=== PATIENT | female | born 1995 | race American Indian/Alaskan Native ===

== ENCOUNTER 2017-06-18 08:00 | Outpatient (CLI) | payer OTHER | END 2017-06-18 09:40 | disposition home or self-care (01) | LOC: NST 08:00 | DX: Z34.83 Encounter for supervision of other normal pregnancy, third trimester (principal) ==

== ENCOUNTER 2017-06-27 05:35 | Inpatient (IN) | payer OTHER ==
[~2017-06-27] VITALS: Ht 162.6 cm; Wt 200.0 kg
[2017-06-27] MEDS ORDERED: PNEU16DI2 (06:43)
[2017-06-27] MEDS ORDERED: PRENATAL 19 TA1 EAC1 PO ×2 (06:43→06:44)
[2017-06-29] MEDS ORDERED: PREPLUS CA-FE1 EACH PO (09:09)
[2017-06-29] MEDS ORDERED: ACETAMINOPHEN500 M1 PO (09:09)
== END 2017-06-29 12:49 | DRG 775 ==
LOC: LDR 05:35 → SURG-SUITE 19:55
PROC: 10E0XZZ Delivery of Products of Conception, External Approach (ICD-10-PCS; principal; 2017-06-27)
PROC: 3E033VJ Introduction of Other Hormone into Peripheral Vein, Percutaneous Approach (ICD-10-PCS; 2017-06-27)
PROC: 4A1HXCZ Monitoring of Products of Conception, Cardiac Rate, External Approach (ICD-10-PCS; 2017-06-27)
PROC: 4A033R1 Measurement of Arterial Saturation, Peripheral, Percutaneous Approach (ICD-10-PCS; 2017-06-27)
DX: O48.0 Post-term pregnancy (principal); O99.354 Diseases of the nervous system complicating childbirth; G40.802 Other epilepsy, not intractable, without status epilepticus; Z3A.40 40 weeks gestation of pregnancy; O99.824 Streptococcus B carrier state complicating childbirth; Z37.0 Single live birth